=== PATIENT | female | born 1985 | race Caucasian/White ===

== ENCOUNTER 2018-01-19 06:36 | Inpatient (IN) ==
--- OUTSIDE RECORDS SUMMARY | 2018-01-19 06:42 | External Medical Summary | Continuity of Care Document ---
:1985 Author Organization [facility] Address [address] [place], [place] [id number] Phone Care Team Providers Name Role Phone Princess Monk DO Unavailable Unavailable Allergies, Adverse Reactions, Alerts Substance Reaction Severity Status Substance Type Unknown WARNIN allergy(ies) could not be collected because the type is not supported. Please contact [facility] for further details. Medications Medication Instructions Dosage Effective Dates Status Comments (start - stop) Fioricet 50 mg-300 take 1 - 2 capsule Not Available - Active mg-40 mg capsule by oral route every 6 hours as needed not to exceed 6 capsules per 24hrs Vitamin take 1 tablet by Not Available - Active tablet oral route every day Problems Condition Effective Dates (start - stop) Clinical Status Follow-Up, Routine - Follow-Up, Routine - Previous Low Transverse - Low Lying Placenta Nos Or W/out - Hemorrhage, Third Trimester 32 weeks gestation of - Supervision of other high risk - pregnancies, first trimester Previous Low Transverse - Encntr screen for infections w sexl - mode of transmiss Encounter for screening for oth - infec/parastc diseases Encounter for suprvsn of normal - , first trimester Encounter For Other Specified - Screening 8 weeks gestation of - Supervision of other high risk - pregnancies, second trimester Previous Low Transverse - 26 weeks gestation of - Supervision of other high risk - pregnancies, second trimester Previous Low Transverse - 18 weeks gestation of - Supervision of other high risk - pregnancies, third trimester Previous Low Transverse - 32 weeks gestation of - Supervision of other high risk - pregnancies, third trimester Previous Low Transverse - Low Lying Placenta Nos Or W/out - Hemorrhage, Third Trimester 28 weeks gestation of - Previous Low Transverse - Encounter for suprvsn of normal - , second trimester 14 weeks gestation of - Previous Low Transverse - Encounter for suprvsn of normal - , third trimester 30 weeks gestation of - Previous Low Transverse - Low Lying Placenta Nos Or W/out - Hemorrhage, Second Trimester Encounter for suprvsn of normal - , second trimester 18 weeks gestation of - Previous Low Transverse - Encounter for suprvsn of normal - , second trimester 22 weeks gestation of - Previous Low Transverse - Encounter for suprvsn of normal - , third trimester 34 weeks gestation of - Amenorrhea, Secondary - Active Active Procedures Procedure Date Ultrasnd preg uterus, flwup/repeat Results Test Name Date and Time Measure Units Reference Range Abnormal Flag Comments Unknown Advance Directives Directive Yes / No Effective Date File Name Unknown Encounters Encounter Practice Location Reason(s) Diagnoses Date Provider Care Team Description For Visit Members [facility] [place] Previous Low Latrice Referring In Womens Transverse 5-201 Valentine. Provider: Counts include 234 beds at the [facility], C-SectionEncounte 8 700 Valentine PO Box r for suprvsn of Medical Latrice L, 1522, normal , Center [address] [place], third [id number] Andrew Serrano, weeks gestation 120, Center [id number], of [place], [facility] 120, [place] Jae STEARNS, tel:[phone] [place], , [place]. [id number]. tel: tel:[phone] Sandra [place] Supervision of Nov-1 Latrice Referring In Womens other high risk 1-201 Valentine. Provider: Health PA, pregnancies, 8 700 Valentine PO Box third Medical Latrice L, 1522, trimesterPrevious Center [address] [place] [address], Low Transverse , Andrew STEARNS, C-[id number] weeks 120, Center , gestation of [place], [facility] 120, [place] Jae STEARNS, tel:[phone] [place], , [place]. [id number]. tel: tel:[phone] Sandra [place] Previous Low Nov-1 Latrice Referring In Womens Ultrasound Transverse 1-201 Valentine. Provider: Health PA, C-SectionLow 8 700 Valentine PO Box Lying Placenta Medical Latrice L, 1522, Nos Or W/out Center [address] [place] [address], Hemorrhage, Third Andrew Serrano, [id number] weeks 120, Center [id number], gestation of [place], [facility] 120, [place] DARYNJae, tel:[phone] [place], , [place]. [id number]. tel: tel:[phone] Sandra [place] Previous Low Hiram-2 Latrice Referring In Womens Transverse 7-201 Valentine. Provider: Health TONY, C-SectionEncounte 8 700 Valentine PO Box r for suprvsn of Medical Latrice L, 1522, normal , Center [address] [place] [address], third [id number] Andrew Serrano, weeks gestation 120, Center [id number], of [place], Andrew 120, [place] Jae STEARNS, tel:[phone] [place], , [place]. [id number]. tel: tel:[phone] Sandra [place] Supervision of Hiram-1 Latrice Referring In Womens other high risk 3-201 Valentine. Provider: Health PA, pregnancies, 8 700 Valentine PO Box third Medical Latrice L, 1522, trimesterPrevious Center [address] [place], [place] [address], Low Transverse Andrew Serrano, C-SectionLow 120, Center [id number], Lying Placenta [place], [facility] 120, [place] Nos Or W/out Jae STEARNS, tel:+ Hemorrhage, Third [id number] [place], [id number] weeks , [place]. [id number]. gestation of tel: tel: [phone] Sandra [place] Supervision of September-2 Latrice Referring In Womens other high risk 9-201 Valentine. Provider: Health PA, pregnancies, 8 700 Valentine PO Box second Medical Latrice L, 1522, trimesterPrevious Center [address] [place] [address], Low Transverse Andrew Serrano, C-Fefcisd21 weeks 120, Center [id number], gestation of [place], [facility] 120, [place] DARYNJae, tel:[phone] [place], , [place]. [id number]. tel: tel:[phone] Sandra [place] Previous Low May-0 Latrice Referring In Womens Transverse 7-201 Valentine. Provider: Brent JIMENEZ, C-SectionEncounte 8 700 Valentine PO Box r for suprvsn of Medical Latrice L, 152, normal , Center [facility] [place], Andrew orr Dr, [id number] weeks 120, Center [id number], gestation of [facility] 120, [place] DARYNJae, tel:[phone] [place], , [place]. [id number]. tel: tel:[phone] Sandra [place] Previous Low Apr-0 Latrice Referring In Womens Transverse 9-201 Valentine. Provider: Brent JIMENEZ, C-SectionLow 8 700 Valentine PO Box Lying Placenta Medical Latrice L, 1522, Nos Or W/out Center [address] [place], Hemorrhage, Andrew Serrano, Second 120, Center [id number], TrimesterEncounte [place], [facility] 120, [place] r for suprvsn of Jae STEARNS, tel:[phone] normal , [phone] [place], second , [place]. [id number]. weeks tel: tel: gestation of [phone] [facility] Supervision of Apr-0 Latrice Referring In Womens Ultrasound other high risk 9-201 Valentine. Provider: Health PA, pregnancies, 8 700 Valentine PO Box second Medical Latrice L, 1522, trimesterPrevious Center [facility] [place], Low Transverse Dr [facility] Irvin STEARNS, C-[id number] weeks 120, Center , gestation of [place], [facility] 120, [place] DARYN Jae, tel:+ [phone] [place], , [place]. [id number]. tel: tel: [phone] [facility] Mar-0 Latrice In Womens 9-201 Valentine. Health PA, 8 700 PO Box Medical 1522, Center [place], Dr [facility], 120, [id number], [place], tel:[phone] , [place]. tel: [phone] [facility] Previous Low Mar-0 Latrice Referring In Womens Transverse 8-201 Valentine. Provider: Health TONY, C-SectionEncounte 8 700 Valentine PO Box r for suprvsn of Medical Latrice L, 1522, normal , Center [facility] [place], Andrew orr Dr, [id number] weeks 120, [place] [id number], gestation of [facility] 120, [place] DARYN Jae, tel:[phone] [place], , [place]. [id number]. tel: tel:[phone] [facility] Supervision of Nigel-2 Latrice Referring In Womens other high risk 4-201 Valentine. Provider: Health PA, pregnancies, 8 700 Valentine PO Box first Medical Latrice L, 1522, trimesterPrevious Center [facility] [place], Low Transverse , [facility] Irvin STEARNS, C-SectionEncntr 120, [place] [id number], screen for [place], [facility] 120, [place] infections w sexl Jae STEARNS, tel:+ mode of [phone] [place], transmissEncounte , [place]. [id number]. r for screening tel: tel: for oth [phone] infec/parastc diseasesEncounter for suprvsn of normal , first trimesterEncounte r For Other Specified Screening8 weeks gestation of [facility] May- Latrice Referring In Womens Follow-Up, 7-201 Valentine. Provider: Health TONY, Routine 6 700 Valentine PO Box Medical [facility] L, 1522, Center [address], [facility], 120, [place] [id number], [facility], Jae STEARNS, tel:[phone] [facility] , [place]. [id number]. tel: tel: [phone] Sandra [place] Apr- Latrice Referring In Womens Follow-Up, 0-201 Valentine. Provider: Health TONY, Routine 5 700 Valentine PO Box Medical [facility] L, 1522, Center [address], [facility], 120, [place] [id number], [facility] 120, Jae STEARNS, tel: [phone] [place], , [place]. [id number]. tel: tel: [phone] Sandra [place] September- Latrice Referring In Womens 1-201 Valentine. Provider: Health TONY, 5 700 Valentine PO Box Medical [facility] L, 1522, Center [address], [facility], 120, [place] [id number], [facility] 120, Jae STEARNS, tel: [phone] [place], , [place]. [id number]. tel: tel: [phone] Sandra [place] Nov-0 Foster In Womens 3-200 Sonya. Health PA, 9 700 PO Box Medical 1522, Center Dr Kenneth, [facility] [place], 120, [id number] Fernandez, [place], tel: [phone] , [place]. tel: [phone] Family History Family Member Diagnosis Age At Onset Mother Cardiovascular Disease Maternal Aunt Cancer, breast No family history of Ovarian Cancer Maternal Grandmother Cancer, breast Father Cardiovascular Disease Paternal Grandmother Cancer, breast No family history of Colon Cancer Immunizations Vaccine Date Status Comments Unknown Payers Payer name Insurance type Covered republican ID Authorization(s) Donnie HANSEN [id number] Social History Type Description Quantity Date Captured Unknown Vital Signs Date / Height Weight BMI Pulse Blood Temperature Respiratory Body Head BMI Time: Rate Pressure Rate Surface Circumference percentile Area Unknown Chief Complaint And Reason For Visit Unknown Chief Complaint And Reason For Visit Reason For Referral Reason For Referral Unknown Plan Of Care Date Type Action Status Appointment Yessica Sharp BOOKED Appointment Yessica [facility] - [facility] - [facility]S BOOKED Future Order: Radiology Order Ultrasound OB Follow-up ([id number]) Ordered Future Order: Radiology Order Complete OB Ultrasound > 14 Weeks Ordered ([id number]) Date Type Problem Goal Intervention Status Start Date Unknown. History Of Present Illness Encounter Date Complaint History Of Present Illness This patient has no known history of present illness Functional Status Encounter Date Functional Assessment Cognitive Assessment Unknown Medications Administered Medication Instructions Dosage Effective Dates (start - stop) Status Comments Drug Treatment Unknown Instructions Date Instruction Additional Information influenza vaccine environmental / work hazards travel tobacco (ask, advise, assess, assist and arrange) alcohol illicit / recreational drugs use of any medications (including supplements, vitamins, herbs, OTC drugs) smoking counseling domestic violence seat belt use childbirth classes / hospital facilities hospital registration genetic testing Zika virus assessment & precautions sexual activity exercise indications for ultrasound HIV and other routine tests risk factors identified by history anticipated course of care nutrition and weight gain counseling, special diet toxoplasmosis precautions (cats / raw meat) Giving encouragement to exercise Related to Body mass index 26.0 - 26.9
--- OUTSIDE RECORDS SUMMARY | 2018-01-19 06:42 | External Medical Summary | Continuity of Care Document ---
:1985 Author Organization [facility] Address [address] [place], [place] [address] Phone Care Team Providers Name Role Phone Princess Monk DO Unavailable Unavailable Allergies, Adverse Reactions, Alerts Substance Reaction Severity Status Substance Type Unknown WARNIN allergy(ies) could not be collected because the type is not supported. Please contact [facility] for further details. Medications Medication Instructions Dosage [...] Follow-Up, Routine - Previous Low Transverse - Encounter for suprvsn of normal - , third trimester 34 weeks gestation of - Supervision of other [...] Third Trimester 32 weeks gestation of - Previous Low Transverse - Encounter for suprvsn of normal - , third trimester Encounter For Screening For - Streptococcus B 36 weeks gestation of - Amenorrhea, Secondary - Active Active Procedures Procedure Date OB Visit No Charge Results Test Name Date and Time Measure Units Reference Range Abnormal Flag Comments Unknown Advance Directives Directive Yes / No Effective Date File Name Unknown Encounters Encounter Practice Location Reason(s) Diagnoses Date Provider Care Team Description For Visit Members Sandra [place] Previous Low Latrice Referring In Womens Transverse 8-201 Valentine. Provider: Health TONY, C-SectionEncounte 8 700 Valentine PO Box r for suprvsn of Medical Latrice L, 1522, normal , Center [facility] Kenneth, third Andrew Serrano, trimesterEncounte 120, Center , r For [place], [facility] 120, [place] Screening For DARYNJae, tel: Streptococcus [phone] [place], [address] weeks gestation , [place]. [id number]. of tel: tel:[phone] [facility] Previous Low Nov-2 Latrice Referring In Womens Transverse 5-201 Valentine. Provider: Brent JIMENEZ, C-SectionEncounte 8 700 Valentine PO Box r for suprvsn of Medical Latrice L, 1522, normal , Center [facility] Kenneth, third [id number] Andrew Serrano, weeks gestation 120, Bynum [id number], of [facility] 120, [place] Jae STEARNS, tel: [phone] [place], , [place]. [id number]. tel: tel:[phone] [facility] Supervision of Nov-1 Latrice Referring In Womens other high risk 1-201 Valentine. Provider: Brent JIMENEZ, pregnancies, 8 700 Valentine PO Box third Medical Latrice L, 1522, trimesterPrevious Center [address] [place] [address], Low Transverse Andrew Serrano, C-Usqumpf02 weeks 120, Bynum [id number], gestation of [facility] 120, [place] DARYN [place], tel: [phone] [place], , [place]. [id number]. tel: tel:[phone] [facility] Previous Low Nov-1 Latrice Referring In Womens Ultrasound Transverse 1-201 Valentine. Provider: Health TONY, C-SectionLow 8 700 Valentine PO Box Lying Placenta Medical Latrice L, 1522, Nos Or W/out Center [address] [place] [address], Hemorrhage, Third Andrew Serrano, [id number] weeks 120, Bynum [id number], gestation of [facility] 120, [place] Jae STEARNS, tel: [phone] [place], , [place]. [id number]. tel: tel: [phone] [facility] Previous Low Hiram-2 Latrice Referring In Womens Transverse 7-201 Valentine. Provider: Brent JIMENEZ, C-SectionEncounte 8 700 Valentine PO Box r for suprvsn of Medical Latrice L, 1522, normal , Center [address] [place] [address], third [id number] Dr [facility] Irvin STEARNS, weeks gestation 120, Center [id number], of [place], Andrew 120, [place] Jae STEARNS, tel: [phone] [place], , [place]. [id number]. tel: tel:[phone] [facility] Supervision of Hiram-1 Latrice Referring In Womens other high risk 3-201 Valentine. Provider: Brent JIMENEZ, pregnancies, 8 700 Valentine PO Box third Medical Latrice L, 1522, trimesterPrevious Center [address] [place] [address], Low Transverse Dr [facility] Irvin STEARNS, C-SectionLow 120, Bynum [id number], Lying Placenta [place], [facility] 120, [place] Nos Or W/out Jae STEARNS, tel: Hemorrhage, Third [id number] [place], [id number] weeks , [place]. [id number]. gestation of tel: tel: [phone] [facility] Supervision of September-2 Latrice Referring In Womens other high risk 9-201 Valentine. Provider: Brent JIMENEZ, pregnancies, 8 700 Valentine PO Box second Medical Latrice L, 1522, trimesterPrevious Center [address] [place] [address], Low Transverse Dr [facility] Irvin STEARNS, C-Raciuvd76 weeks 120, Bynum [id number], gestation of [place], [facility] 120, [place] DARYNJae, tel:[phone] [place], , [place]. [id number]. tel: tel:[phone] [facility] Previous Low May-0 Latrice Referring In Womens Transverse 7-201 Valentine. Provider: Brent JIMENEZ, C-SectionEncounte 8 700 Valentine PO Box r for suprvsn of Medical Latrice L, 1522, normal , Center [address] [place] [address], second , [facility] DARYN, weeks 120, Center , gestation of [facility] 120, [place] Jae STEARNS, tel:[phone] [place], , [place]. [id number]. tel: tel:[phone] [facility] Previous Low Apr-0 Latrice Referring In Womens Transverse 9-201 Valentine. Provider: Health TONY, C-SectionLow 8 700 Valentine PO Box Lying Placenta Medical Latrice L, 1522, Nos Or W/out Center [address] [place] [address], Hemorrhage, Dr, [facility] DARYN, Second 120, Bynum , TrimesterEncounte [facility] 120, [place] r for suprvsn of ALJae, tel:+ normal , [phone] [place], second , [place]. [id number]. [id number] weeks tel: tel: gestation of [phone] [facility] Supervision of Apr-0 Latrice Referring In Womens Ultrasound other high risk 9-201 Valentine. Provider: Health TONY, pregnancies, 8 700 Valentine PO Box second Medical Latrice L, 1522, trimesterPrevious Center [address] [place] [address], Low Transverse , [facility], C-Idhrvak70 weeks 120, Bynum [id number], gestation of [facility] 120, [place] Jae STEARNS, tel:+ [phone] [place], , [place]. [id number]. tel: tel:[phone] Sandra [place] Mar-0 Latrice In Womens 9-201 Valentine. Health PA, 8 700 PO Box Medical 1522, Center [place], , [facility], 120, [id number], [place], tel: [phone] , [place]. tel: [phone] Sandra [place] Previous Low Mar-0 Latrice Referring In Womens Transverse 8-201 Valentine. Provider: Health TONY, C-SectionEncounte 8 700 Valentine PO Box r for suprvsn of Medical Latrice L, 1522, normal , Center [address], [facility] Irvin STEARNS, weeks 120, Center [id number], gestation of [place], [facility] 120, [place] DARYNJae, tel:+ [phone] [place], , [place]. [id number]. tel: tel:[phone] [facility] Supervision of May- Latrice Referring In Womens other high risk 4-201 Valentine. Provider: Health TONY, pregnancies, 8 700 Valentine PO Box first Medical Latrice L, 1522, trimesterPrevious Center [facility] Kenneth, Low Transverse , [facility] DARYN, C-SectionEncntr 120, Center [id number], screen for [place], [facility] 120, [place] infections w sexl Jae STEARNS, tel:+2 mode of [phone] [place], transmissEncounte , [place]. [id number]. r for screening tel: tel: for oth [phone] infec/parastc diseasesEncounter for suprvsn of normal , first trimesterEncounte r For Other Specified Screening8 weeks gestation of [facility] May- Latrice Referring In Womens Follow-Up, 7-201 Valentine. Provider: Brent JIMENEZ, Routine 6 700 Valentine PO Box Medical Latrice L, 1522, Center [address], [facility], 120, Center [id number], [facility], [place] Jae STEARNS, tel:+ [phone] DARYN, , [place]. [id number]. tel: tel:[phone] Sandra [place] Dec-3 Latrice Referring In Womens Follow-Up, 0-201 Valentine. Provider: Brent JIMENEZ, Routine 5 700 Valentine PO Box Medical Latrice L, 1522, Center [address], [facility], 120, Center [id number], [facility] 120, [place] Jae STEARNS, tel:[phone] [place], , [place]. [id number]. tel: tel:[phone] Sandra [place] Latrice Referring In Womens 1-201 Valentine. Provider: Health TONY, 5 700 Valentine [facility] Medical [facility] L, 1522, Center [address] Dr Kenneth, [facility], 120, Bynum [id number], [facility] 120, [place], Jae, tel: [phone] [place], , [place]. [id number]. tel: tel: [phone] [facility] Nov-0 Foster In Womens 3-200 Sonya. Health TONY, 9 700 [facility] 1522, Bynum Dr Kenneth, [facility], 120, [id number], [place], [place], tel: [phone] , [place]. tel: [phone] Family History Family Member Diagnosis Age At Onset Mother Cardiovascular Disease Maternal Aunt Cancer, breast No family history of Ovarian Cancer Maternal Grandmother Cancer, breast Father Cardiovascular Disease Paternal Grandmother Cancer, breast No family history of Colon Cancer Immunizations Vaccine Date Status Comments Unknown Payers Payer name Insurance type Covered republican ID Authorization(s) [facility] [id number] Social History Type Description Quantity Date Captured Alcohol Use Details No Caffeine Use Details Unknown Tobacco Use Status Smoking Status Never smoker Vital Signs Date / Height Weight BMI Pulse Blood Temperature Respiratory Body Head BMI Time: Rate Pressure Rate Surface Circumference percentile Area Unknown Chief Complaint And Reason For Visit Unknown Chief Complaint And Reason For Visit Reason For Referral Reason For Referral Unknown Plan Of Care Date Type Action Status Appointment Yessica Sharp BOOKED Appointment Yessica Sharp BOOKED Appointment Yessica Sharp BOOKED Appointment Y[facility]ica [facility] - [facility] - [facility]S BOOKED Future Order: Radiology Order Complete OB Ultrasound > 14 Weeks Ordered ([id number]) Future Order: Radiology Order Ultrasound OB Follow-up ([id number]) Ordered Date Type Problem Goal Intervention Status Start [...]
--- OUTSIDE RECORDS SUMMARY | 2018-01-19 06:42 | External Medical Summary | Continuity of Care Document ---
:1985 Author Organization [facility] Address [address] [place], [place] [id number] Phone Care Team Providers Name Role Phone Princess Monk DO Unavailable Unavailable Allergies, Adverse Reactions, Alerts Substance Reaction Severity Status Substance Type Unknown WARNIN allergy(ies) could not be collected because the type is not supported. Please contact [facility] for further details. Medications Medication Instructions [...] Status Follow-Up, Routine - Follow-Up, Routine - Supervision of other high risk - [...] Secondary - Active Active Procedures Procedure Date Unknown Results Test Name Date and Time Measure Units Reference Range Abnormal Flag Comments Unknown Advance Directives Directive Yes / No Effective Date File Name Unknown Encounters Encounter Practice Location Reason(s) Diagnoses Date Provider Care Team Description For Visit Members Sandra [place] Previous Low Latrice Referring In Womens Transverse 5-201 Valentine. Provider: Health TONY, C-SectionEncounte 8 700 Valentine PO Box r for suprvsn of Irvin Pollard L, 1522, normal , Center [address] [place], third [id number], [facility], weeks gestation 120, Center Dr [id number], of [place], Andrew 120, [place] DARYNJae, tel:[phone] [place], , [place]. [id number]. tel: tel: [phone] Associates Jae Darrick-1 Latrice In Womens 3-201 Valentine. Health PA, 8 700 PO Box Medical 1522, Center [place], Dr [facility] [place], 120, [id number], [place], [place], tel:[phone] , [place]. tel: [phone] Sandra [place] Supervision of Darrick-1 Latrice Referring In Womens other high risk 1-201 Valentine. Provider: Health TONY, pregnancies, 8 700 Valentine PO Box third Medical Latrice L, 1522, trimesterPrevious Center [address] [place] [address], Low Transverse , Andrew STEARNS, C-[id number] weeks 120, Center [id number], gestation of Jae [facility] 120, [place] Jae STEARNS, tel:[phone] [place], , [place]. [id number]. tel: tel: [phone] Associates Jae Previous Low Darrick-1 Latirce Referring In Womens Ultrasound Transverse 1-201 Valentine. Provider: Health TONY, C-SectionLow 8 700 Valentine PO Box Lying Placenta Medical Latrice L, 1522, Nos Or W/out Center [address] [place] [address], Hemorrhage, Third Andrew Serrano, [id number] weeks 120, Raymond , gestation of [place], Andrew 120, [place] DARYNJae, tel:[phone] [place], , [place]. [id number]. tel: tel: [phone] Associates Jae Previous Low Hiram-2 Latrice Referring In Womens Transverse 7-201 Valentine. Provider: Health TONY, C-SectionEncounte 8 700 Valentine PO Box r for suprvsn of Medical Latrice L, 1522, normal , Center [address] [place] [address], third [id number] Andrew Serrano, weeks gestation 120, Center , of [place], Andrew 120, [place] Jae STEARNS, tel: [phone] [place], , [place]. [id number]. tel: tel: [phone] Associates Jae Supervision of Oct- Latrice Referring In Womens other high risk 3-201 Valentine. Provider: Brent JIMENEZ, pregnancies, 8 700 Valentine PO Box third Medical Latrice L, 1522, trimesterPrevious Center [address] [place], [place] [address], Low Transverse Andrew Serrano, C-SectionLow 120, Center [id number], Lying Placenta [place], [facility] 120, [place] Nos Or W/out Jae STEARNS, tel:+ Hemorrhage, Third [phone] [place], [id number] weeks , [place]. [id number]. gestation of tel: tel: [phone] Sandra [place] Supervision of September-2 Latrice Referring In Womens other high risk 9-201 Valentine. Provider: Brent JIMENEZ, pregnancies, 8 700 Valentine PO Box second Medical Latrice L, 1522, trimesterPrevious Center [address] [place] [address], Low Transverse Andrew Serrano, C-[id number] weeks 120, Raymond [id number], gestation of [facility] 120, [place] DARYN Jae, tel:[phone] [place], , [place]. [id number]. tel: tel: [phone] Sandra [place] Previous Low May-0 Latrice Referring In Womens Transverse 7-201 Valentine. Provider: Brent JIMENEZ, C-SectionEncounte 8 700 Valentine PO Box r for suprvsn of Medical Latrice L, 1522, normal , Center [address] [place], [place] [address], Ste Medical [place], weeks 120, Raymond [id number], gestation of [place], [facility] 120, [place] DARYN Jae, tel:[phone] [place], , [place]. [id number]. tel: tel:[phone] Sandra [place] Previous Low Apr-0 Latrice Referring In Womens Transverse 9-201 Valentine. Provider: Brent JIMENEZ, C-SectionLow 8 700 Valentine PO Box Lying Placenta Medical Latrice L, 1522, Nos Or W/out Center [facility] [place], Hemorrhage, , [facility] Irvin STEARNS, Second 120, Center [id number], TrimesterEncounte [place], [facility] 120, [place] r for suprvsn of Jae STEARNS, tel:[phone] normal , [phone] [place], second , [place]. [id number]. [id number] weeks tel: tel:316 gestation of [phone] Associates Jae Supervision of Apr-0 Latrice Referring In Womens Ultrasound other high risk 9-201 Valentine. Provider: Health PA, pregnancies, 8 700 Valentine PO Box second Medical Latrice L, 1522, [facility]Previous [facility], Low Transverse , [facility] Irvin STEARNS, C-Mqtyjak84 weeks 120, Raymond , gestation of [facility] 120, [place] DARYN [place], tel:[phone] [place], , [place]. [id number]. tel: tel:[phone] Associates Jae Mar-0 Latrice In Womens 9-201 Valentine. Health PA, 8 700 PO Box Medical 1522, [place], , [facility], 120, [id number], [place], [place], tel: [phone] , [place]. tel: [phone] Associates Jae Previous Low Mar-0 Latrice Referring In Womens Transverse 8-201 Valentine. Provider: Health PA, C-SectionEncounte 8 700 Valentine PO Box r for suprvsn of Medical Latrice L, 1522, normal , Center [address] [place] [address], second Andrew Serrano, [id number] weeks 120, Raymond [id number], gestation of [facility] 120, [place] DARYN Jae, tel:[phone] [place], , [place]. [id number]. tel: tel:[phone] Associates Jae Supervision of Nigel-2 Latrice Referring In Womens other high risk 4-201 Valentine. Provider: Health PA, pregnancies, 8 700 Valentine PO Box first Medical Latrice L, 1522, trimesterPrevious Center 700 [place], Low Transverse Dr [facility] DARYN, C-SectionEncntr 120, Center [id number], screen for [place], [facility] 120, [place] infections w sexl Jae STEARNS, tel:[phone] mode of [phone] [place], transmissEncounte , [place]. [id number]. r for screening tel: tel:+[phone] for oth [phone] infec/parastc diseasesEncounter for suprvsn of normal , first trimesterEncounte r For Other Specified Screening8 weeks gestation of Sandra [place] May- Latrice Referring In Womens Follow-Up, 7-201 Valentine. Provider: Health PA, Routine 6 700 Valentine PO [facility] Wesley L, 1522, Center [address], [facility], 120, Raymond [id number], [facility], [place] Jae STEARNS, tel:[phone] [place], , [place]. [id number]. tel: tel:[phone] Sandra [place] Latrice Referring In Womens Follow-Up, 0-201 Valentine. Provider: Health PA, Routine 5 700 Valentine PO Box Medical Latrice L, 1522, Center [address], [facility], 120, Raymond [id number], [facility], [place] Jae STEARNS, tel:[phone] [place], , [place]. [id number]. tel: tel:[phone] Sandra [place] September- Latrice Referring In Womens 1-201 Valentine. Provider: Health PA, 5 700 Valentine PO Box Medical Latrice L, 1522, Center [address], [facility], 120, Raymond [id number], [facility] 120, [place] Jae STEARNS, tel:[phone] [place], , [place]. [id number]. tel: tel:[phone] Sandra [place] Nov-0 Foster In Womens 3-200 Sonya. Health PA, 9 700 PO [place] [id number] Dr Kenneth, [facility], 120, [id number], [facility] [place], tel:[phone] , [place]. tel: [phone] Family History Family Member Diagnosis Age At Onset Mother Cardiovascular Disease Maternal Aunt Cancer, breast No family history of Ovarian Cancer Maternal Grandmother Cancer, breast Father Cardiovascular Disease Paternal Grandmother Cancer, breast No family history of Colon Cancer Immunizations Vaccine Date Status Comments Unknown Payers Payer name Insurance type Covered constitution party ID Authorization(s) Donnie [id number] Social History Type Description Quantity Date Captured [...] Yessica Sharp BOOKED Appointment Yessica Sharp [place] [facility] [place] Future Order: Radiology Order Complete OB Ultrasound > 14 Weeks Ordered ([id number]) Future Order: Radiology Order Ultrasound OB Follow-up ([id number]) Ordered Date Type Problem Goal Intervention Status [...]
--- OUTSIDE RECORDS SUMMARY | 2018-01-19 06:42 | External Medical Summary | Continuity of Care Document ---
:1985 Author Organization [facility] Address [address] [place], [place] [id number] Phone Care Team Providers Name Role Phone Princess Monk DO Unavailable Unavailable Allergies, Adverse Reactions, Alerts Substance Reaction Severity Status Substance Type Unknown WARNIN allergy(ies) could not be collected because the type is not supported. Please contact [facility] for further details. Medications Medication Instructions Dosage Effective Dates Status Comments (start - stop) Fioricet 50 mg-300 take 1 - 2 capsule Not Available - Active mg-40 mg capsule by oral route every 6 hours as needed not to exceed 6 capsules per 24hrs Unisom Sleepgels take 1 capsule by 50 MG - Active 50 mg capsule oral route every day at bedtime as needed Vitamin take 1 tablet by Not Available - Active tablet oral route every day Problems Condition Effective Dates (start - stop) Clinical Status Follow-Up, Routine - Follow-Up, Routine - Previous Low Transverse - Encounter for suprvsn of normal - , second trimester 14 weeks gestation of - Supervision of other high risk - pregnancies, first trimester Previous Low Transverse - Encntr screen for infections w sexl - mode of transmiss Encounter for screening for oth - infec/parastc diseases Encounter for suprvsn of normal - , first trimester Encounter For Other Specified - Screening 8 weeks gestation of - Amenorrhea, Secondary - Active Active Procedures Procedure Date OB Visit No Charge Results Test Name Date and Time Measure Units Reference Range Abnormal Flag Comments Unknown Advance Directives Directive Yes / No Effective Date File Name Unknown Encounters Encounter Practice Location Reason(s) Diagnoses Date Provider Care Team Description For Visit Members Sandra [place] Mar-0 Latrice In Womens 9-201 Valentine. Health TONY, 8 700 PO Box Medical 1522, Center Kenneth, , [facility], 120, [id number], [place], [place], tel: [phone] , [place]. tel: [phone] Associates Jae Previous Low Mar-0 Latrice Referring In Womens Transverse 8-201 Valentine. Provider: Brent JIMENEZ, C-SectionEncounter 8 700 Valentine PO Box for suprvsn of Medical Latrice L, 1522, normal , Center [facility] Kenneth, second [id number] , [facility], weeks gestation of 120, [place] , Jae, [facility] 120, [place] Jae STEARNS, tel: [phone] [place], , [place]. [id number]. tel: tel: [phone] Associates Jae Supervision of Latrice Referring In Womens other high risk 4-201 Valentine. Provider: Brent JIMENEZ, pregnancies, first 8 700 Valentine PO Box trimesterPrevious Medical Latrice L, 1522, Low Transverse Center [address] [place] [address], C-SectionEncntr , [facility], screen for 120, [place] [id number], infections w sexl Jae, [facility] 120, [place] mode of Jae STEARNS, tel: transmissEncounter [phone] [place], for screening for , [place]. [id number]. oth infec/parastc tel: tel: diseasesEncounter [phone] for suprvsn of normal , first trimesterEncounter For Other Specified Screening8 weeks gestation of Associates Jae Latrice Referring In Womens Follow-Up, Routine 7-201 Valentine. Provider: Brent JIMENEZ, 6 700 Valentine PO Box Medical Latrice L, 1522, Center [address] Dr Kenneth, [facility] Medical [place], 120, Center [id number], Jae, [facility] 120, Jae STEARNS, tel:+ [phone] DARYN, , . [id number]. tel: tel:[phone] Sandra [place] Dec-3 Latrice Referring In Womens Follow-Up, Routine 0-201 Valentine. Provider: Health TONY, 5 700 Valentine PO Box Medical Latrice L, 1522, Center [address] Dr Kenneth, [facility] [place], 120, Center [id number], Jae, [facility] 120, Jae STEARNS, tel:+ [phone] [place], , . [id number]. tel: tel: [phone] Sandra [place] May-1 Latrice Referring In Womens 1-201 Valentine. Provider: Brent JIMENEZ, 5 700 Valentine PO Box Medical Latrice L, 1522, Center [address], [facility] [place], 120, Center [id number], Jae, [facility] 120, Jae STEARNS, tel:[phone] DARYN, , . [id number]. tel: tel:[phone] Sandra [place] Nov-0 Foster In Womens 3-200 Sonya. Health PA, 9 700 PO Box Medical 1522, [place] Dr Kenneth, [facility] [place], 120, [id number], Jae, DARYN, tel:[phone] , . tel: [phone] Family History Family Member Diagnosis Age At Onset Mother Cardiovascular Disease Maternal Aunt Cancer, breast No family history of Ovarian Cancer Maternal Grandmother Cancer, breast Father Cardiovascular Disease Paternal Grandmother Cancer, breast No family history of Colon Cancer Immunizations Vaccine Date Status Comments Unknown Payers Payer name Insurance type Covered libertarian ID Authorization(s) IZABELLA SHIPLEY [id number] Social History Type Description Quantity Date Captured Alcohol Use Details No Caffeine Use Details Unknown Tobacco Use Status Smoking Status Never smoker Vital Signs Date / Height Weight BMI Pulse Blood Temperature Respiratory Body Head BMI Time: Rate Pressure Rate Surface Circumference percentile Area 156.80 28.6 /2018 lbs 8 mm[Hg] 1:31 kg/m PM eter (2) Chief Complaint And Reason For Visit Unknown Chief Complaint And Reason For Visit Reason For Referral Reason For Referral Unknown Plan Of Care Date Type Action Status Appointment Yessica Sharp BOOKED Appointment Yessica Sharp BOOKED Date Type Problem Goal Intervention Status Start [...]
--- OUTSIDE RECORDS SUMMARY | 2018-01-19 06:42 | External Medical Summary | Continuity of Care Document ---
:1984 Author Organization [facility] Address [address] [place], [place] [id number] Phone Care Team Providers Name Role Phone Princess Monk DO Unavailable Unavailable Allergies, Adverse Reactions, Alerts Substance Reaction Severity Status Substance Type Unknown WARNIN allergy(ies) could not be collected because the type is not supported. Please contact [facility] for further details. Medications Medication Instructions Dosage [...] third trimester 30 weeks gestation of - Supervision of other [...] Third Trimester 32 weeks gestation of - Amenorrhea, Secondary - Active Active Procedures Procedure Date OB Visit No Charge Results Test Name Date and Time Measure Units Reference Range Abnormal Flag Comments Unknown Advance Directives Directive Yes / No Effective Date File Name Unknown Encounters Encounter Practice Location Reason(s) Diagnoses Date Provider Care Team Description For Visit Members Sandra [place] Supervision of Latrice Referring In Womens other high risk 1-201 Valentine. Provider: Health PA, pregnancies, 8 700 Valentine PO Box kodi Pollard L, 1522, trimesterPrevious Center 700 [place], Low Transverse Andrew Serrano, C-Eznbkqv82 weeks 120, [place] [id number], gestation of Jae [facility] 120, [place] Jae STEARNS, tel:[phone] [place], , [place]. [id number]. tel: tel:[phone] Sandra [place] Previous Low Nov- Latrice Referring In Womens Ultrasound Transverse 1-201 Valentine. Provider: Health TONY, C-SectionLow 8 700 Valentine PO Box Lying Placenta Medical Latrice L, 1522, Nos Or W/out Center 700 [place], Hemorrhage, Third Andrew Serrano, [id number] weeks 120, Center [id number], gestation of [place], [facility] 120, [place] DARYN Jae, tel:+ [phone] [place], , [place]. [id number]. tel: tel:[phone] Sandra [place] Previous Low Oct- Latrice Referring In Womens Transverse 7-201 Valentine. Provider: Brent JIMENEZ, C-SectionEncounte 8 700 Valentine PO Box r for suprvsn of Medical Latrice L, 1522, normal , Center [address] [place] [address], third [id number] Andrew Serrano, weeks gestation 120, [place] , of [place], Andrew 120, [place] Jae STEARNS, tel:+ [phone] [place], , [place]. [id number]. tel: tel:[phone] Sandra [place] Supervision of Oct- Latrice Referring In Womens other high risk 3-201 Valentine. Provider: Brent JIMENEZ, pregnancies, 8 700 Valentine PO Box third Medical Latrice L, 1522, trimesterPrevious Center [facility] e[facility]nneth Low Transverse Andrew Serrano, C-SectionLow 120, [place] [id number], Lying Placenta [place], [facility] 120, [place] Nos Or W/out DARYN [place], tel:+ Hemorrhage, Third [phone] [place], [id number] weeks , [place]. [id number]. gestation of tel: tel:[phone] Sandra [place] Supervision of September- Latrice Referring In Womens other high risk 9-201 Valentine. Provider: Brent JIMENEZ, pregnancies, 8 700 Valentine PO Box second Medical Latrice L, 1522, trimesterPrevious Center 700 [place], Low Transverse Andrew Serrano, C-[id number] weeks 120, Center [id number], gestation of [place], [facility] 120, [place] Jae STEARNS, tel:+ [phone] [place], , [place]. [id number]. tel: tel:[phone] Associates Jae Previous Low May-0 Latrice Referring In Womens Transverse 7-201 Valentine. Provider: Health PA, C-SectionEncounte 8 700 Valentine PO Box r for suprvsn of Medical Latrice L, 1522, normal , Center [address] [place] [address], second , Andrew STEARNS, [id number] weeks 120, Center [id number], gestation of [facility] 120, [place] Jae STEARNS, tel:+ [phone] [place], , [place]. [id number]. tel: tel:[phone] Associates Jae Previous Low Apr-0 Latrice Referring In Womens Transverse 9-201 Valentine. Provider: Health TONY, C-SectionLow 8 700 Valentine PO Box Lying Placenta Medical Latrice L, 1522, Nos Or W/out Center [address] [place] [address], Hemorrhage, , Andrew STEARNS, Second 120, Center [id number], TrimesterEncounte [facility] 120, [place] r for suprvsn of Jae STEARNS, tel:[phone] normal , [phone] [place], second , [place]. [id number]. [id number] weeks tel: tel:+316 gestation of [phone] Associates Jae Supervision of Apr-0 Latrice Referring In Womens Ultrasound other high risk 9-201 Valentine. Provider: Health TONY, pregnancies, 8 700 Valentine PO Box second Medical Latrice L, 1522, trimesterPrevious Center [facility] [place], Low Transverse Andrew Serrano, C-Hfbanzt81 weeks 120, Center [id number], gestation of [place], [facility] 120, [place] Jea STEARNS, tel:[phone] [place], , [place]. [id number]. tel: tel:+[phone] Sandra [place] Mar-0 Latrice In Womens 9-201 Valentine. Health PA, 8 700 PO Box Medical 1522, Center Dr Kenneth, [facility] [place], 120, [id number], [place], [place], tel: [phone] , [place]. tel: [phone] Associates Jae Previous Low Mar-0 Latrice Referring In Womens Transverse 8-201 Valentine. Provider: Health TONY, C-SectionEncounte 8 700 Valentine PO Box r for suprvsn of Medical Latrice L, 1522, normal , Center [address] [place], [place] [address], second , [facility], [id number] weeks 120, Center [id number], gestation of [place], [facility] 120, [place] Jae STEARNS, tel: [phone] [place], , [place]. [id number]. tel: tel: [phone] Sandra [place] Supervision of May- Latrice Referring In Womens other high risk 4-201 Valentine. Provider: Health TONY, pregnancies, 8 700 Valentine PO Box first Medical Latrice L, 1522, trimesterPrevious Center [facility], Low Transverse , [facility], C-SectionEncntr 120, Center [id number], screen for [place], [facility] 120, [place] infections w sexl Jae STEARNS, tel: mode of [phone] [place], transmissEncounte , [place]. [id number]. r for screening tel: tel: for oth [phone] infec/parastc diseasesEncounter for suprvsn of normal , first trimesterEncounte r For Other Specified Screening8 weeks gestation of Associates Jae May-2 Latrice Referring In Womens Follow-Up, 7-201 Valentine. Provider: Brent JIMENEZ, Routine 6 700 Valentine PO Box Medical Latrice L, 1522, Center [address], [facility], 120, Center [id number], [place], [facility] 120, [place] Jae STEARNS, tel:+ [phone] [place], , [place]. [id number]. tel: tel:+ [phone] Sandra [place] Dec- Latrice Referring In Womens Follow-Up, 0-201 Valentine. Provider: Health TONY, Routine 5 700 Valentine PO Box Medical Latrice L, 1522, Center [address] Dr Kenneth, [facility] [place], 120, [place] [id number], Jae, [facility] 120, DARYN, Jae, tel:[phone] [place], , [place]. [id number]. tel: tel: [phone] Sandra [place] September- Latrice Referring In Womens 1-201 Valentine. Provider: Brent JIMENEZ, 5 700 Valentine PO Box Medical Latrice L, 1522, Center [address] Dr Kenneth, [facility], 120, [place] [id number], [facility], Jae STEARNS, tel:[phone] [place], , [place]. [id number]. tel: tel: [phone] Sandra [place] Nov-0 Foster In Womens 3-200 Sonya. Health TONY, 9 700 PO Box Medical 1522, [place] Dr Kenneth, [facility] [place], 120, [id number], [place], [facility], tel: [phone] , [place]. tel: [phone] Family History Family Member Diagnosis Age At Onset Mother Cardiovascular Disease Maternal Aunt Cancer, breast No family history of Ovarian Cancer Maternal Grandmother Cancer, breast Father Cardiovascular Disease Paternal Grandmother Cancer, breast No family history of Colon Cancer Immunizations Vaccine Date Status Comments Unknown Payers Payer name Insurance type Covered constitution party ID Authorization(s) [facility] [id number] Social History Type Description Quantity Date Captured [...] Yessica Sharp BOOKED Appointment Yessica Sharp - [facility] [place]/S BOOKED Future Order: Radiology Order Complete OB Ultrasound > 14 Weeks Ordered ([id number]) Future Order: Radiology Order Ultrasound OB Follow-up ([id number]) Ordered Date Type Problem Goal Intervention Status [...]
--- OUTSIDE RECORDS SUMMARY | 2018-01-19 06:42 | External Medical Summary | Continuity of Care Document ---
:1985 Author Organization [facility] Address [address] [place], [place] [id number] Phone Care Team Providers Name Role Phone Princess Monk DO Unavailable Unavailable Allergies, Adverse Reactions, Alerts Substance Reaction Severity Status Substance Type Unknown WARNIN allergy(ies) could not be collected because the type is not supported. Please contact [facility] for further details. Medications Medication Instructions [...] Third Trimester 28 weeks gestation of - Supervision of other [...] Transverse - 18 weeks gestation of - Previous Low [...] second trimester 22 weeks gestation of - Amenorrhea, Secondary - Active Active Procedures Procedure Date OB Visit No Charge - LAST DIPPER Results Test Name Date and Time Measure Units Reference Range Abnormal Flag Comments Unknown Advance Directives Directive Yes / No Effective Date File Name Unknown Encounters Encounter Practice Location Reason(s) Diagnoses Date Provider Care Team Description For Visit Members [facility] Previous Low Latrice Referring In Womens Transverse 7-201 Valentine. Provider: Brent JIMENEZ, C-SectionEncounte 8 700 Valentine PO Box r for suprvsn of Medical Latrice L, 152, normal , Center [address] [place], third [id number] Andrew Serrano, weeks gestation 120, Center [id number], of Jae, [facility] 120, [place] Jae STEARNS, tel: [phone] DARYN, [id number] , [place]. [id number]. tel: tel: [phone] Associates [facility] Supervision of Latrice Referring In Womens other high risk 3-201 Valentine. Provider: Brent JIMENEZ, pregnancies, 8 700 Valentine PO Box third Medical Latrice L, 1522, trimesterPrevious Center [address] [place], [place] [address]e Low Transverse Andrew Serrano, C-SectionLow 120, Center [id number], Lying Placenta [facility] 120, [place] Nos Or W/out Jae STEARNS, tel:+ Hemorrhage, Third [id number] [place], [id number] weeks , [place]. [id number]. gestation of tel: tel: [phone] Sandra [place] Supervision of September-2 Latrice Referring In Womens other high risk 9-201 Valentine. Provider: Health PA, pregnancies, 8 700 Valentine PO Box second Medical Latrice L, 1522, trimesterPrevious Center [facility] Kenneth Low Transverse Andrew Serrano, C-[id number] weeks 120, Center [id number], gestation of [facility] 120, [place] Jae STEARNS, tel:+ [phone] [place], , [place]. [id number]. tel: tel: [phone] Sandra [place] Previous Low May-0 Latrice Referring In Womens Transverse 7-201 Valentine. Provider: Health TONY, C-SectionEncounte 8 700 Valentine PO Box r for suprvsn of Medical Latrice L, 1522, normal , Center [facility] Kenneth, Andrew orr Dr, [id number] weeks 120, [place] [id number], gestation of [facility] 120, [place] Jae STEARNS, tel:+ [phone] [place], , [place]. [id number]. tel: tel: [phone] Sandra [place]e Previous Low Apr-0 Latriec Referring In Womens Transverse 9-201 Valentine. Provider: Health TONY, C-SectionLow 8 700 Valentine PO Box Lying Placenta Medical Latrice L, 1522, Nos Or W/out Center [facility] Kenneth, Hemorrhage, , Andrew STEARNS, Second 120, Center [id number], TrimesterEncounte [facility] 120, [place] r for suprvsn of Jae STEARNS, tel:+[phone] normal , [id number] [place], second , [place]. [id number]. [id number] weeks tel: tel:+1-316 gestation of [phone] Associates [facility] Supervision of Apr-0 Latrice Referring In Womens Ultrasound other high risk 9-201 Valentine. Provider: Health PA, pregnancies, 8 700 Valentine PO Box second Medical Latrice L, 1522, trimesterPrevious Center [address] [place], Low Transverse Andrew Serrano, C-[id number] weeks 120, Center [id number], gestation of [place], [facility] 120, [place] Jae STEARNS, tel: [phone] [place], , [place]. [id number]. tel: tel: [phone] Associates [facility] Mar-0 Latrice In Womens 9-201 Valentine. Health PA, 8 700 PO Box Medical 1522, Center Kenneth, Dr [facility], 120, [id number], [place], [place], tel:[phone] , [place]. tel: [phone] Sandra [place] Previous Low Mar-0 Latrice Referring In Womens Transverse 8-201 Valentine. Provider: Health TONY, C-SectionEncounte 8 700 Valentine PO Box r for suprvsn of Medical Latrice L, 1522, normal , Center [facility] [place], Andrew orr Dr, [id number] weeks 120, [place] [id number], gestation of [place], Andrew 120, [place] Jae STEARNS, tel: [phone] [place], , [place]. [id number]. tel: tel: [phone] Sandra [place] Supervision of May-2 Latrice Referring In Womens other high risk 4-201 Valentine. Provider: Health PA, pregnancies, 8 700 Valentine PO Box first Medical Latrice L, 1522, trimesterPrevious Center [facility] Kenneth, Low Transverse Andrew Serrano, C-SectionEncntr 120, [place] [id number], screen for [place], Andrew 120, [place] infections w sexl Jae STEARNS, tel:[phone], transmissEncounte , [place]. [id number]. r for screening tel: tel: for oth [phone] infec/parastc diseasesEncounter for suprvsn of normal , first trimesterEncounte r For Other Specified Screening8 weeks gestation of Associates Jae Nigel- Latrice Referring In Womens Follow-Up, 7-201 Valentine. Provider: Brent JIMENEZ, Routine 6 700 Valentine PO Box Medical Latrice L, 1522, Center [address] Dr Kenneth, [facility] [place], 120, Center [id number], [facility] 120, Jae STEARNS, tel: [phone] [place], , [place]. [id number]. tel: tel: [phone] Sandra [place] Apr-3 Latrice Referring In Womens Follow-Up, 0-201 Valentine. Provider: Brent JIMENEZ, Routine 5 700 Valentine PO Box Medical [facility] L, 1522, Center [facility] Dr Kenneth, [facility], 120, [place] , [facility] 120, Jae STEARNS, tel: [phone] [place], , [place]. [id number]. tel: tel: [phone] Sandra [place]e September- Latrice Referring In Womens 1-201 Valentine. Provider: Brent JIMENEZ, 5 700 Valentine PO Box Medical [facility] L, 1522, Center [address] Dr Kenneth, [facility] [place], 120, [place] [id number], [facility] 120, Jae STEARNS, tel:[phone] [facility] , . [id number]. tel: tel: [phone] Sandra [place] Nov-0 Foster In Womens 3-200 Sonya. Health TONY, 9 700 [facility] Medical 1522, [place] Dr Kenneth, [facility] [place], 120, [id number], Jae, DARYN, tel: [phone] , [place]. tel: [phone] Family History Family Member Diagnosis Age At Onset Mother Cardiovascular Disease Maternal Aunt Cancer, breast No family history of Ovarian Cancer Maternal Grandmother Cancer, breast Father Cardiovascular Disease Paternal Grandmother Cancer, breast No family history of Colon Cancer Immunizations Vaccine Date Status Comments Unknown Payers Payer name Insurance type Covered alliance party ID Authorization(s) Donnie HANSEN [id number] Social History Type Description Quantity Date Captured Alcohol Use Details No Caffeine Use Details Unknown Tobacco Use Status Smoking Status Never smoker Vital Signs Date / Height Weight BMI Pulse Blood Temperature Respiratory Body Head BMI Time: Rate Pressure Rate Surface Circumference percentile Area 155.70 28.4 112/70 2018 lbs 8 mm[Hg] 8:40 kg/m AM eter (2) Chief Complaint And Reason For Visit Unknown Chief Complaint And Reason For Visit Reason For Referral Reason For Referral Unknown Plan Of Care Date Type Action Status Appointment Yessica Sharp BOOKED Appointment Yessica Sharp BOOKED Future Order: Radiology Order Complete OB Ultrasound > 14 Weeks Ordered ([id number]) Date Type Problem Goal Intervention Status Start [...]
--- OUTSIDE RECORDS SUMMARY | 2018-01-19 06:42 | External Medical Summary | Continuity of Care Document ---
:1985 Author Organization [facility] Address [address] [place], [place] [address] Phone Care Team Providers Name Role Phone Princess Monk DO Unavailable Unavailable Allergies, Adverse Reactions, Alerts Substance Reaction Severity Status Substance Type Unknown WARNIN allergy(ies) could not be collected because the type is not supported. Please contact [facility] for further details. Medications Medication Instructions Dosage [...] In Womens Transverse 5-201 Valentine. Provider: Health PA, C-SectionEncounte 8 700 Valentine PO Box r for suprvsn of Irvin Pollard L, 1522, normal , Center [address] [place], third [id number] Dr, [facility] Medical [place], weeks gestation 120, Center [id number], of [place], Andrew 120, [place] Jae STEARNS, tel:[phone] [place], , [place]. [id number]. tel: tel:[phone] Sandra [place] Supervision of Nov-1 Latrice Referring In Womens other high risk 1-201 Valentine. Provider: Brent JIMENZE, pregnancies, 8 700 Valentine PO Box third Medical Latrice L, 1522, trimesterPrevious Center [address] [place] [address], Low Transverse Andrew Serrano, C-[id number] weeks 120, Center [id number], gestation of [place], Andrew 120, [place] DARYNJae, tel:[phone] [place], , [place]. [id number]. tel: tel:[phone] Sandra [place] Previous Low Nov-1 Latrice Referring In Womens Ultrasound Transverse 1-201 Valentine. Provider: Brent JIMENEZ, C-SectionLow 8 700 Valentine PO Box Lying Placenta Medical Latrice L, 1522, Nos Or W/out Center [address] [place] [address], Hemorrhage, Third Andrew Serrano, [id number] weeks 120, Center [id number], gestation of [place], [facility] 120, [place] DARYN Jae, tel:[phone] [place], , [place]. [id number]. tel: tel:[phone] Sandra [place]e Previous Low Hiram-2 Latrice Referring In Womens Transverse 7-201 Valentine. Provider: Brent JIMENEZ, C-SectionEncounte 8 700 Valentine PO Box r for suprvsn of Medical Latrice L, 1522, normal , Center [address] [place] [address], third [id number] Andrew Serrano, weeks gestation 120, Center [id number], of [place], Andrew 120, [place] Jae STEARNS, tel:[phone] DARYN, , [place]. [id number]. tel: tel:[phone] Sandra [place] Supervision of Hiram- Latrice Referring In Womens other high risk 3-201 Valentine. Provider: Health PA, pregnancies, 8 700 Valentine PO Box third Medical Latrice L, 1522, trimesterPrevious Center [facility] [place], Low Transverse Andrew Serrano, C-SectionLow 120, Center [id number], Lying Placenta [facility] 120, [place] Nos Or W/out DARYN Jae, tel:+ Hemorrhage, Third [id number] [place], [id number] weeks , [place]. [id number]. gestation of tel: tel:+ [phone] Associates [facility]ae Supervision of September-2 Latrice Referring In Womens other high risk 9-201 Valentine. Provider: Health PA, pregnancies, 8 700 Valentine PO Box second Medical Latrice L, 1522, trimesterPrevious Center [address] [place], [place] [address]ta, Low Transverse , Andrew STEARNS, C-Bqkmsny98 weeks 120, Center [id number], gestation of [facility] 120, [place], tel:[phone] [place], , [place]. [id number]. tel: tel: [phone] Associates Jae Previous Low May-0 Latrice Referring In Womens Transverse 7-201 Valentine. Provider: Brent JIMENEZ, C-SectionEncounte 8 700 Valentine PO Box r for suprvsn of Medical Latrice L, 1522, normal , Center [address] [place], [place] [address]ta, banner Andrew Serrano, [id number] weeks 120, Center [id number], gestation of [facility] 120, [place] DARYNJae, tel:[phone] [place], , [place]. [id number]. tel: tel: [phone] Associates [facility] Previous Low Apr-0 Latrice Referring In Womens Transverse 9-201 Valentine. Provider: Brent JIMENEZ, C-SectionLow 8 700 Valentine PO Box Lying Placenta Medical Latrice L, 1522, Nos Or W/out Center [facility] [place], Hemorrhage, Andrew Serrano, Second 120, Center [id number], TrimesterEncounte [facility] 120, [place] r for suprvsn of Jae STEARNS, tel:+ normal , [phone] [place], second , [place]. [id number]. [id number] weeks tel: tel:316 gestation of [phone] Associates Jae Supervision of Apr-0 Latrice Referring In Womens Ultrasound other high risk 9-201 Valentine. Provider: Health PA, pregnancies, 8 700 Valentine PO Box second Medical Latrice L, 1522, trimesterPrevious Center 700 [place], Low Transverse , [facility] DARYN, C-Txlrrmi59 weeks 120, Center , gestation of [place], [facility] 120, [place] Jae STEARNS, tel:+ [phone] [place], , [place]. [id number]. tel: tel: [phone] Associates [facility]ae Mar-0 Latrice In Womens 9-201 Valentine. Health PA, 8 700 PO Box Medical 1522, Center [place], Dr [facility], 120, [id number], [place], [place], tel:[phone] , [place]. tel: [phone] Associates Jae Previous Low Mar-0 Latrice Referring In Womens Transverse 8-201 Valentine. Provider: Health TONY, C-SectionEncounte 8 700 Valentine PO Box r for suprvsn of Medical Latrice L, 1522, normal , Center [facility] [place], Andrew orr Dr, [id number] weeks 120, [place] [id number], gestation of [place], [facility] 120, [place] Jae STEARNS, tel:[phone] [place], , [place]. [id number]. tel: tel:[phone] Associates [facility]ae Supervision of Nigel-2 Latrice Referring In Womens other high risk 4-201 Valentine. Provider: Health PA, pregnancies, 8 700 Valentine PO Box first Medical Latrice L, 1522, trimesterPrevious Center [facility] [place], Low Transverse , [facility], C-SectionEncntr 120, [place] [id number], screen for [place], [facility] 120, [place] infections w sexl Jae STEARNS, tel: mode of [phone] [place], transmissEncounte , [place]. [id number]. r for screening tel: tel: for oth [phone] infec/parastc diseasesEncounter for suprvsn of normal , first trimesterEncounte r For Other Specified Screening8 weeks gestation of Sandra [place] May- Latrice Referring In Womens Follow-Up, 7-201 Valentine. Provider: Health TONY, Routine 6 700 Valentine PO Box Medical Latrice L, 1522, Center [address], [facility], 120, [place] [id number], [facility] 120, Jae STEARNS, tel: [phone] [facility] , [place]. [id number]. tel: tel: [phone] Sandra [place] Apr- Latrice Referring In Womens Follow-Up, 0-201 Valentine. Provider: Health TONY, Routine 5 700 Valentine PO Box Medical [facility] L, 1522, Center [address], [facility], 120, [place] [id number], [facility] 120, Jae STEARNS, tel:+ [phone] [place], , [place]. [id number]. tel: tel: [phone] Sandra [place] September- Latrice Referring In Womens 1-201 Valentine. Provider: Health TONY, 5 700 Valentine PO Box Medical [facility] L, 1522, Center [address], [facility], 120, [place] [id number], [facility] 120, Jae STEARNS, tel: [phone] [place], , [place]. [id number]. tel: tel:[phone] Sandra [place]e Nov-0 Foster In Womens 3-200 Sonya. Health PA, 9 700 PO Box Medical 1522, [place] Dr Kenneth, [facility] [place], 120, [id number] Fernandez, DARYN, tel:[phone] , [place]. tel: [phone] Family History Family Member Diagnosis Age At Onset Mother Cardiovascular Disease Maternal Aunt Cancer, breast No family history of Ovarian Cancer Maternal Grandmother Cancer, breast Father Cardiovascular Disease Paternal Grandmother Cancer, breast No family history of Colon Cancer Immunizations Vaccine Date Status Comments Unknown Payers Payer name Insurance type Covered libertarian ID Authorization(s) Donnie HANSEN [id number] Social History Type Description Quantity Date Captured Alcohol Use Details No Caffeine Use Details Unknown Tobacco Use Status Smoking Status Never smoker Vital Signs Date / Height Weight BMI Pulse Blood Temperature Respiratory Body Head BMI Time: Rate Pressure Rate Surface Circumference percentile Area 157.00 28.7 119/73 2018 lbs 1 mm[Hg] 8:42 kg/m AM eter (2) Chief Complaint And Reason For Visit Unknown Chief Complaint And Reason For Visit Reason For Referral Reason For Referral Unknown Plan Of Care Date Type Action Status Appointment Yessica Sharp BOOKED Appointment Yessica Sharp - IAC - RC/S BOOKED Future Order: Radiology Order Complete OB Ultrasound > 14 Weeks Ordered ([id number]) Future Order: Radiology Order Ultrasound OB Follow-up ([id number]) Ordered Date Type Problem Goal Intervention Status [...]
--- OUTSIDE RECORDS SUMMARY | 2018-01-19 06:43 | External Medical Summary | Continuity of Care Document ---
:1985 Author Organization [facility] Address [address] [place], [place] [id number] Phone Care Team Providers Name Role Phone Princess Monk DO Unavailable Unavailable Allergies, Adverse Reactions, Alerts Substance Reaction Severity Status Substance Type Unknown WARNIN allergy(ies) could not be collected because the type is not supported. Please contact [facility] for further details. Medications Medication Instructions [...] - Screening 8 weeks gestation of - Previous Low Transverse - Encounter for suprvsn of normal - , second trimester 14 weeks gestation of - Previous Low Transverse - Low Lying Placenta Nos Or W/out - Hemorrhage, Second Trimester Encounter for suprvsn of normal - , second trimester 18 weeks gestation of - Amenorrhea, Secondary - Active Active Procedures Procedure Date Ultrasound exam of preg uterus, complete Results Test Name Date and Time Measure Units Reference Range Abnormal Flag Comments Unknown Advance Directives Directive Yes / No Effective Date File Name Unknown Encounters Encounter Practice Location Reason(s) Diagnoses Date Provider Care Team Description For Visit Members [facility] Previous Low Apr-0 Latrice Referring In Womens Transverse - Valentine. Provider: Brent JIMENEZ, C-SectionLow 8 700 Valentine PO Box Lying Placenta Medical Latrice L, 1522, Nos Or W/out Center [facility] Kenneth, Hemorrhage, , [facility] Irvin STEARNS, Second 120, [place] [id number], TrimesterEncounte [facility] 120, [place] r for suprvsn of Jae STEARNS, tel:+ normal , [phone] [place], second , [place]. [id number]. [email or web address] weeks tel: tel: gestation of [phone] Associates Jae Supervision of Aug-0 Latrice Referring In Womens Ultrasound other high risk - Valentine. Provider: Brent JIMENEZ, pregnancies, 8 700 Valentine PO Box second Medical Latrice L, 1522, trimesterPrevious Center [facility] Kenneth, Low Transverse Dr [facility] DARYN, C-Xtcikyj45 weeks 120, [place] [id number], [facility] 120, [place] Jae STEARNS, tel: [phone] DARYN, , [place]. [id number]. tel: tel: [phone] Sandra [place] Jul-0 Latrice In Womens 9-201 Valentine. Health PA, 8 700 PO Box Medical 1522, [address] [place], 120, [id number], [place], [place], tel:[phone] , [place]. tel: [phone] Sandra [place] Previous Low Mar-0 Latrice Referring In Womens Transverse 8-201 Valentine. Provider: Brent JIMENEZ, C-SectionEncounte 8 700 Valentine PO Box r for suprvsn of Medical Latrice L, 1522, normal , Center [address] [place] [address], second , [facility], [id number] weeks 120, Center [id number], gestation of [place], [facility] 120, [place] Jae STEARNS, tel:+ [phone] [place], , [place]. [id number]. tel: tel:+[phone] Sandra [place] Supervision of May- Latrice Referring In Womens other high risk 4-201 Valentine. Provider: Brent JIMENEZ, pregnancies, 8 700 Valentine PO Box first Medical Latrice L, 1522, trimesterPrevious Center [facility] Kenneth, Low Transverse , [facility] DARYN, C-SectionEncntr 120, [place] [id number], screen for [place], [facility] 120, [place] infections w sexl Jae STEARNS, tel: mode of [phone] [place], transmissEncounte , [place]. [id number]. r for screening tel: tel: for oth [phone] infec/parastc diseasesEncounter for suprvsn of normal , first trimesterEncounte r For Other Specified Screening8 weeks gestation of Associates Jae May-2 Latrice Referring In Womens Follow-Up, 7-201 Valentine. Provider: Brent JIMENEZ, Routine 6 700 Valentine PO Box Medical Latrice L, 1522, Center [address], [facility], 120, [place] [id number], [facility] 120, [place] Jae STEARNS, tel: [phone] [place], , [place]. [id number]. tel: tel:[phone] Sandra [place] Dec-3 Latrice Referring In Womens Follow-Up, 0-201 Valentine. Provider: Brent JIMENEZ, Routine 5 700 Valentine PO Box Medical Latrice Mejía, 1522, Center [address], [facility], 120, [place] [id number], [place], [facility] 120, Jae STEARNS, tel: [phone] [place], , [place]. [id number]. tel: tel: [phone] Sandra [place] Latrice Referring In Womens 1-201 Valentine. Provider: Health TONY, 5 700 Valentine PO Box Medical [facility], 1522, [place] [address] Dr Kenneth, [facility], 120, [place] [id number], [facility] 120, DARYN, Jae, tel: [phone] [place], , [place]. [id number]. tel: tel: [phone] Sandra [place]e Mar- Foster In Womens 3-200 Sonya. Health PA, 9 700 PO Box Medical 1522, [place] Dr Kenneth, [facility] [place], 120, [id number], Jae, DARYN, tel: [phone] , [place]. tel: [phone] Family History Family Member Diagnosis Age At Onset Mother Cardiovascular Disease Maternal Aunt Cancer, breast No family history of Ovarian Cancer Maternal Grandmother Cancer, breast Father Cardiovascular Disease Paternal Grandmother Cancer, breast No family history of Colon Cancer Immunizations Vaccine Date Status Comments Unknown Payers Payer name Insurance type Covered libertarian ID Authorization(s) Unknown Social History Type Description Quantity Date Captured Unknown Vital Signs Date / Height Weight BMI Pulse Blood Temperature Respiratory Body Head BMI Time: Rate Pressure Rate Surface Circumference percentile Area Unknown Chief Complaint And Reason For Visit Unknown Chief Complaint And Reason For Visit Reason For Referral Reason For Referral Unknown Plan Of Care Date Type Action Status Appointment Yessica Sharp BOOKED Future Order: Radiology Order Complete OB Ultrasound > 14 Weeks Ordered ([id number]) Date Type Problem Goal Intervention Status Start [...]
--- OUTSIDE RECORDS SUMMARY | 2018-01-19 06:43 | External Medical Summary | Continuity of Care Document ---
:1985 Author Organization [facility] Address [address] [place], [place] [id number] Phone Care Team Providers Name Role Phone Princess Monk DO Unavailable Unavailable Allergies, Adverse Reactions, Alerts Substance Reaction Severity Status Substance Type Unknown WARNIN allergy(ies) could not be collected because the type is not supported. [facility] contact [facility] for further details. Medications Medication Instructions Dosage [...] second trimester 18 weeks gestation of - Supervision of [...] second trimester 14 weeks gestation of - Amenorrhea, Secondary - [...] L, 1522, Nos Or W/out Center [facility] Kenneth Hemorrhage, , [facility], Second 120, [place] , TrimesterEncounte [facility] 120, [place] r for suprvsn of Jae STEARNS, tel:+2 normal , [phone] [place], second , [place]. [id number]. [email or web address] weeks tel: tel: gestation of [phone] Associates Jae Supervision of Aug-0 Latrice Referring In Womens Ultrasound other high risk -201 Valentine. Provider: Brent JIMENEZ, pregnancies, 8 700 Valentine PO [address] second Medical Latrice L, 1522, trimesterPrevious Center [facility] Kenneth Low Transverse , [facility], [id number] weeks 120, [place] [id number], gestation of [facility] 120, [place] Jae STEARNS, tel: [phone] [place], , [place]. [id number]. tel: tel: [phone] Sandra [place] Mar-0 Latrice In Womens 9-201 Valentine. Brent [place], 8 700 PO [address] Medical [address], Center [address] Kenneth, [facility] [place], 120, [id number], [place], tel:[phone] , [place]. tel: [phone] Sandra [place] Previous Low Mar-0 Latrice Referring In Womens Transverse 8-201 Valentine. Provider: Brent JIMENEZ, C-SectionEncounte 8 700 Valentine PO Box r for suprvsn of Medical Latrice L, 1522, normal , Center [address] [place] [address], second , [facility], [email or web address] weeks 120, Center [id number], gestation of [place], [facility] 120, [place] Jae STEARNS, tel:+ [phone] [place], , [place]. [id number]. tel: tel:[phone] Sandra [place] Supervision of May- Latrice Referring In Womens other high risk 4-201 Valentine. Provider: Brent JIMENEZ, pregnancies, 8 700 Valentine PO Box first Medical Latrice L, 1522, trimesterPrevious Center [address] [place] [id number], Low Transverse , [facility], C-SectionEncntr 120, Center [id number], screen for [place], [facility] 120, [place] infections w sexl Jae STEARNS, tel:+ mode of [phone] [place], transmissEncounte , [place]. [id number]. r for screening tel: tel:+ for oth [phone] infec/parastc diseasesEncounter for suprvsn of normal , first trimesterEncounte r For Other Specified Screening8 weeks gestation of Associates Jae May-2 Latrice Referring In Womens Follow-Up, 7-201 Valentine. Provider: Brent JIMENEZ, Routine 6 700 Valentine PO Box Medical Latrice L, 1522, Center [address], [facility] [place], 120, [place] [id number], Jae, [facility] 120, [place] Jae STEARNS, tel:+ [phone] [place], , [place]. [id number]. tel: tel:[phone] Sandra [place] Dec-3 Latrice Referring In Womens Follow-Up, 0-201 Valentine. Provider: Brent JIMENEZ, Routine 5 700 Valentine PO Box Medical Latrice Mejía, 1522, [address], [facility], 120, [place] [id number], Jae, [facility] 120, [place] Jae STEARNS, tel: [phone] [place], , [place]. [id number]. tel: tel: [phone] Sandra [place] Latrice Referring In Womens 1-201 Valentine. Provider: Health TONY, 5 700 Valentine PO Box Medical Latrice L, 1522, Center [address] Kenneth, [facility] [place], 120, [place] [id number], [facility], [place], Jae, tel: [phone] [place], , [place]. [id number]. tel: tel: [phone] Sandra [place] Mar- Foster In Womens 3-200 Sonya. Health TONY, 9 700 PO Box Medical [address], [place] Dr Kenneth, [facility] [place], 120, [id number], [place], tel: [phone] , [place]. tel: [phone] Family History Family Member Diagnosis Age At Onset Mother Cardiovascular Disease Maternal Aunt Cancer, breast No family history of Ovarian Cancer Maternal Grandmother Cancer, breast Father Cardiovascular Disease Paternal Grandmother Cancer, breast No family history of Colon Cancer Immunizations Vaccine Date Status Comments Unknown Payers Payer name Insurance type Covered republican ID Authorization(s) Unknown Social History Type Description [...] Complete OB Ultrasound > 14 Weeks Ordered ([id number]) Date Type Problem Goal Intervention Status Start [...]
--- OUTSIDE RECORDS SUMMARY | 2018-01-19 06:43 | External Medical Summary | Continuity of Care Document ---
:1985 Author Organization [facility] Address [address] [place], [place] [id number] Phone Care Team Providers Name Role Phone Princess Monk DO Unavailable Unavailable Allergies, Adverse Reactions, Alerts Substance Reaction Severity Status Substance Type Unknown WARNIN allergy(ies) could not be collected because the type is not supported. Please contact [facility] for further details. Medications Medication Instructions Dosage Effective Dates Status Comments (start - stop) Unisom Sleepgels take 1 capsule by 50 MG - Active 50 mg capsule oral route every day at bedtime as needed Vitamin take 1 tablet by Not Available - Active tablet oral route every day Diclegis 10 mg-10 take 1 tablet by - No Longer mg tablet,delayed oral route every Active release day in the morning, 1 tablet in the mid-afternoon, and 2 tablets at bedtime Problems Condition Effective Dates (start - stop) [...] Team Description For Visit Members [facility] Supervision of Latrice Referring In Womens other high risk 4-201 Valentine. Provider: Brent JIMENEZ, pregnancies, first 8 700 Valentine PO Box trimesterPrevious Medical Latrice L, 1522, Low Transverse Center [facility] Kenneth, C-SectionEncntr , [facility], screen for 120, [place] , infections w sexl Jae, [facility] 120, [place] mode of Jae STEARNS, tel:+ transmissEncounter [phone] [place], for screening for , [place]. [id number]. ot infec/parastc tel: tel: diseasesEncounter [phone] for suprvsn of normal , first trimesterEncounter For Other Specified Screening8 weeks gestation of Associates [facility] May-0 Latrice In Womens 9-201 Valentine. Brent JIMENEZ, 8 700 PO Box Medical [address], [place] [address] Kenneth, [facility], 120, [id number], [place], tel: [phone] , [place]. tel: [phone] Sandra [place] May-2 Latrice Referring In Womens Follow-Up, Routine 7-201 Valentine. Provider: Brent JIMENEZ, 6 700 Valentine PO Box Medical Latrice L, 1522, Center [facility] Dr Kenneth, [facility] [place], 120, [place] [id number], Jae [facility] 120, [place] Jae STEARNS, tel: [phone] [place], , [place]. [id number]. tel: tel: [phone] Associates [facility] Apr-3 Latrice Referring In Womens Follow-Up, Routine 0-201 Valentine. Provider: Brent JIMENEZ, 5 700 Valentine PO Box Medical Latrice L, 1522, Center [address] Kenneth, [facility] [place], 120, [place] [id number], Jae [facility] 120, [place] Jae STEARNS, tel:[phone] [place], , [place]. [id number]. tel: tel:[phone] Associates [facility] Latrice Referring In Womens 1-201 Valentine. Provider: Health TONY, 5 700 Valentine PO Box Medical Latrice L, 1522, Center [address] Dr Kenneth, [facility] Medical [place], 120, [place] Dr , [facility] , DARYN, Jae, tel: [phone] [facility] , . [id number]. tel: tel: [phone] [facility] Mar- Foster In Womens 3-200 Sonya. Health TONY, 9 700 [facility] Medical 1522, [place] Dr Kenneth, [facility], 120, [id number], [place], DARYN, tel: [phone] , . tel: [phone] Family History Family Member Diagnosis Age At Onset Mother Cardiovascular Disease Maternal Aunt Cancer, breast No family history of Ovarian Cancer Maternal Grandmother Cancer, breast Father Cardiovascular Disease Paternal Grandmother Cancer, breast No family history of Colon Cancer Immunizations Vaccine Date Status Comments Unknown Payers Payer name Insurance type Covered libertarian ID Authorization(s) [facility] [id number] Social History Type Description Quantity Date Captured Unknown Vital Signs Date / Height Weight BMI Pulse Blood Temperature Respiratory Body Head BMI Time: Rate Pressure Rate Surface Circumference percentile Area Unknown Chief Complaint And Reason For Visit Unknown Chief Complaint And Reason For Visit Reason For Referral Reason For Referral Unknown Plan Of Care Date Type Action Status Appointment Yessica Sharp BOOKED Date Type Problem [...]
[2018-01-19] MEDS ORDERED: CEFAZOLIN PREMIX (MC ONLY) 2 GM/50 ML BAG IV ONE (07:28)
[2018-01-19] MEDS ORDERED: CITRIC ACID/SODIUM CITRATE 30ml PO ONE (07:28)
[2018-01-19] MEDS ORDERED: FAMOTIDINE PB 20 MG/50 ML BAG IV ONE (07:28)
[2018-01-19] MEDS ORDERED: NOZIN NASAL SWAB NAS ONE (07:28)
[2018-01-19] MEDS ORDERED: NALBUPHINE 10 MG/ML INJECTION IVP PRN ×2 (07:46→10:09)
[2018-01-19] MEDS: LR 1,000 ML IV SCH ×2 (07:48→10:35)
--- NOTE | 2018-01-19 08:39 | Anesthesia Preoperative Report ---
Anesthesia Preoperative Record - Date and Time Date: 01/19/18 Preoperative Diagnosis: ob triage Proposed Procedure: Repeat NPO Since Date: 01/19/18 NPO Since Time: 00:00 Allergies/Adverse Reactions: Allergies Allergy/AdvReac Type Severity Reaction Status Date / Time diphtheria, pertussis, Allergy Severe SEIZURE Verified 01/11/18 11:13 tetanus vacc - Medications Inpatient Medications: Current Medications Lactated Ringer's (Lactated Ringers) 1,000 mls @ 150 mls/hr IV .[id number] LELE Last Admin: 01/19/18 07:48 Dose: 150 mls/hr Nalbuphine HCl (Nubain) 5 - 10 mg IVP O PRN Last Admin: 01/19/18 07:47 Dose: 5 mg Home Medications: Home Medications Medication Instructions Recorded Confirmed Type Vits W-Ca,Fe,Fa(<1MG) 1 tab PO DAILY #0 10/30/09 01/11/18 History () Docusate Calcium 240 mg PO DAILY #20 cap 05/14/15 Rx Ibuprofen 800 mg PO Q8HMC #40 tab 05/14/15 Rx Oxycodone HCl/Acetaminophen 1 tab PO Q3HR #40 tab 05/14/15 Rx [Oxycodone-Acetaminophen 5-325] Is Patient on Beta Bright?: No - Medical History Respiratory: Reports: Pneumonia (Pt reports she had pneumonia last year. and partially collapsed lung.) Cardiovascular: Reports: High Cholesterol Gastrointestional: Reports: Gastroesophageal Reflux Disease (minor) Neuro/Musculoskeletal: Reports: Headaches, Seizures (as a child. no meds currently. no problems since childhood) Other History: Reports: Now - Surgical History Reproductive Surgery/Treatment: Reports: Section Anesthesia Reactions: None (never had GA) Hx Family Anesthesia Reaction: Yes (mom hard to sleep and slow to wake) History of Motion Sickness: No - Social History Smoking Status: Former smoker (quit 4yrs ago) Packs per day: 1 Pack-years: 10 - Pertinent Findings Laboratory: CBC and BMP 01/19/18 07:38 - Physical Exam Respiratory Exam: Present: lungs clear, bilateral breath sounds equal Cardiovascular Exam: Present: regular rate and rhythm, no murmur - Airway Assessment Mallampati Score: III TMD: 3 Fingerbreadths Neck Extension: good Overall Assessment: may be difficult intubation - ASA ASA Score: 2 - Plan Anesthesia: Neuroaxial Regional/Trunk Block: Spinal - Discussion Discussion: Discussed risks/options/alternatives of anesthesia and questions answered. Patient consents. Nursing pain assessment noted. Present for Discussion: other (none) Attestation Statement: Prior to the delivery of any anesthetic medication, I examined the patient, developed the plan, obtained the patient's consent and discussed the risk and benefits of the procedure with the patient/guardian. - Additional Information Seen by Anesthesia: Yes
[2018-01-19] MEDS ORDERED: MORPHINE SULFATE PF 5mg/10ml INJ (Duramorph) ONE (08:53)
[2018-01-19] MEDS ORDERED: FentaNYL 100 MCG/2 ML INJECTION ONE (08:54)
[2018-01-19] MEDS ORDERED: ONDANSETRON 4 MG/2 ML INJECTION ONE (08:57)
[2018-01-19] MEDS ORDERED: LIDOCAINE 2% (100mg/5mL) 5ml PF SDV ONE (09:01)
[2018-01-19] MEDS ORDERED: BUPIVACAINE 0.75%/DEXTROSE 8.5% SPINAL 2 ML AMPULE IJ ONE (09:01)
[2018-01-19] MEDS ORDERED: KETAMINE 500 MG/10 ML INJECTION ONE (09:16)
[2018-01-19] MEDS ORDERED: EPHEDRINE 50mg/ml INJECTION ONE (09:17)
[2018-01-19] MEDS ORDERED: TRANEXAMIC ACID 1,000 MG in NS 100 ML IV ONE (09:20)
[2018-01-19] MEDS ORDERED: OXYTOCIN BOLUS BAG 30 UNIT/500 ML ML IV SCH (09:22)
[2018-01-19] MEDS: D5LR 1,000 ML IV SCH ×2 (09:40→11:00)
[2018-01-19] MEDS ORDERED: METOCLOPRAMIDE 10mg/2ml INJECTION ONE (09:40)
[2018-01-19] MEDS ORDERED: DEXAMETHASONE 4 MG/ML INJECTION ONE (09:41)
[2018-01-19] MEDS ORDERED: ONDANSETRON 4 MG/2 ML INJECTION IVP PRN (10:09)
[2018-01-19] MEDS ORDERED: NALOXONE 2 MG/2 ML INJECTION PFS IVP PRN (10:09)
[2018-01-19] MEDS ORDERED: METOCLOPRAMIDE 10mg/2ml INJECTION IVP PRN (10:09)
[2018-01-19] MEDS ORDERED: HYDROCORTISONE 2.5% CREAM 30gm RECTALLY PRN (11:57)
[2018-01-19] MEDS ORDERED: HYDROCODONE/APAP 5mg/325mg TABLET PO PRN (11:57)
[2018-01-19] MEDS ORDERED: DiphenhydrAMINE 25 MG CAPSULE PO PRN (11:57)
[2018-01-19] MEDS ORDERED: CALCIUM CARBONATE Chewable 500mg TABLET PO PRN (11:57)
[2018-01-19] MEDS ORDERED: OXYTOCIN DRIP 30 UNIT/500 ML ML IV SCH (11:57)
[2018-01-19] MEDS ORDERED: ACETAMINOPHEN 500 MG TABLET PO PRN (11:57)
[2018-01-19] MEDS ORDERED: SIMETHICONE 80 MG CHEWABLE TABLET PO PRN (11:57)
[2018-01-19] MEDS: Oxycodone/Acetaminophen 5/325 1 TAB PO PRN ×3 (12:24→20:38)
[2018-01-19] MEDS: IBUPROFEN 800 MG TABLET PO SCH ×2 (12:24→19:49)
--- NOTE | 2018-01-19 12:28 | Operative Note ---
DATE OF OPERATION 01/19/2018 Ms. Gardiner presented to [facility] this morning with complaint of contractions. Originally they were about every half an hour. Once here, these began to progress and she changed her cervix from 3 cm to 5 cm. Meanwhile, we had called a section. The patient was scheduled two days from now for repeat and she has had three priors, given her active labor, that moved to today. PREOPERATIVE DIAGNOSIS Term , active labor, previous x3. POSTOPERATIVE DIAGNOSIS Term , active labor, previous x3, delivered. PROCEDURE Repeat low transverse section. SURGEON Valentine Pollard MD COATING AND EMBOSSING UNIT OPERATOR Arslan Rosas, Hemstitcher ANESTHESIA Spinal by Sandro Nieves CRNA EBL 700 mL DESCRIPTION OF PROCEDURE Ms. Sharp was brought to the OR and given regional analgesia to good effect. She was then placed on the OR table in the comfortable supine position with left lateral displacement. A Meier catheter was placed to dependent drain. The abdomen was prepped and draped in usual sterile fashion. A Pfannenstiel skin incision was made with a sharp knife. This was carried down to fascia. Fascia was incised transversely. Fascia was then bluntly and sharply dissected free of rectus muscles. Rectus muscles were quite divided already and the peritoneum and been entered simply dissecting the fascia. This peritoneal incision was then extended vertically. The bladder blade was inserted. The bladder was noted be well below our area of operation. A low transverse uterine incision was made with one cut. The lower uterine segment was quite thin and I believe would have ruptured had she continued to labor. There was copious clear amniotic fluid. Baby was delivered in the vertex OA presentation after reduction of a loose nuchal cord. Baby was bulb suctioned on the abdomen and then again after total delivery. Cord was doubly clamped and cut. Baby was given to Dr. Nunez and his team for care. This is a liveborn female with Apgars of 8/9/9. She weighed 7 pounds, 8.1 ounces. The placenta was then manually removed, intact. It had a normal configuration and a normal-appearing three-vessel cord. The uterus was exteriorized and we began our closure. There were two small arterial bleeds on the right. They were grasped with clamps and secured with 3-0 chromic ties. We then reapproximated the myometrial incision with a running locking 0 Monocryl. The incision had extended toward the cervix on the right approximately 2 cm and this was secured without difficulty. We inspected carefully for hemostasis. This was under good control. Uterus, tubes and ovaries were noted to be grossly normal and returned to the abdominal cavity. We reinspected for hemostasis and again it remained under good control as it did throughout the procedure. Peritoneum was then reapproximated with a running nonlocking 2-0 Vicryl. Fascia was reapproximated with a running nonlocking 0 Vicryl. Skin edges were reapproximated with a subcuticular style 3-0 undyed Vicryl. The wound was dressed with Steri-Strips and sterile dressing. Counts were correct postoperatively x2 and the urine remained clear and free flowing throughout the procedure. At the time of this dictation, Ms. Sharp is being transferred to recovery. She is in stable condition. LAISHA
[2018-01-19] MEDS: SIMETHICONE 80 MG CHEWABLE TABLET PO SCH ×3 (16:17→22:01)
[2018-01-19 20:39] VITALS: BMI 29.7
[2018-01-20] MEDS: Oxycodone/Acetaminophen 5/325 1 TAB PO PRN ×6 (00:37→21:58)
[2018-01-20] MEDS: D5LR 1,000 ML IV SCH (00:39)
[2018-01-20] MEDS: IBUPROFEN 800 MG TABLET PO SCH ×3 (04:06→21:21)
--- NOTE | 2018-01-20 07:50 | Progress Note ---
OB PP Progress Note Free Text - Date Date: 01/20/18 - Progress Note Progress Note: doing ok no c/o vss af q&a-krb
--- NOTE | 2018-01-20 07:59 | Anesthesia Postoperative Note ---
- Date and Time Date: 01/20/18 Time: 07:55 - Status Patient Participated in Evaluation: Patient Participated in Person Vital Signs: Temperature 98.1 F 01/20/18 04:20 Pulse Rate 74 01/20/18 04:20 Respiratory Rate 20 01/20/18 04:20 Blood Pressure 110/65 01/20/18 04:20 Pulse Oximetry 97 01/20/18 04:20 Respiratory Function: Airway Patent, Regular Respirations Cardiovascular Function: Regular Pulse Mental Status: Alert and Oriented Pain Intensity: 3 Hydration: Taking PO Fluids Nausea/Vomiting: None Complications During Recover: None Apparent Post Anesthesia Care Notes: ambulatory without problems - Follow-Up Instructions Instructions: Per Surgeon
[2018-01-20] MEDS: SIMETHICONE 80 MG CHEWABLE TABLET PO SCH ×4 (08:29→21:34)
[2018-01-20] MEDS: DOCUSATE CALCIUM 240 MG CAPSULE PO SCH (08:29)
[2018-01-21] MEDS: Oxycodone/Acetaminophen 5/325 1 TAB PO PRN ×5 (02:41→21:19)
[2018-01-21] MEDS: DOCUSATE CALCIUM 240 MG CAPSULE PO SCH ×2 (06:26→10:59)
[2018-01-21] MEDS: IBUPROFEN 800 MG TABLET PO SCH ×3 (06:27→21:20)
[2018-01-21] MEDS: SIMETHICONE 80 MG CHEWABLE TABLET PO SCH ×5 (06:27→21:20)
--- NOTE | 2018-01-21 08:56 | OB/GYN Progress Note ---
OB-PP Progress Note - General PPD2 POD:: POD2 - Subjective Date: 01/21/18 Lochia: Minimal Pain: controlled Voiding: voiding Nausea or Vomiting Present: No - Objective Vital Signs: Last Vital Signs Temp 96.7 F L 01/21/18 05:45 Pulse 69 01/21/18 05:45 Resp 16 01/21/18 05:45 BP 128/70 01/21/18 05:45 Pulse Ox 100 01/21/18 05:45 Urine Output: good General: alert and oriented Abdomen: fundus firm, non-tender Extremities: non-tender - Assessment Assessment: SP, Repeat C/S - Plan Plan: routine care Consider dismissal this evening or in a.m.
[2018-01-22] MEDS: Oxycodone/Acetaminophen 5/325 1 TAB PO PRN ×3 (03:52→10:11)
[2018-01-22] MEDS: IBUPROFEN 800 MG TABLET PO SCH (03:52)
[2018-01-22 05:51] VITALS: BP 131/81; PULSE 85; RESP 16; TEMP 98.3; O2SAT 97
[2018-01-22] MEDS: DOCUSATE CALCIUM 240 MG CAPSULE PO SCH (10:11)
[2018-01-22] MEDS: SIMETHICONE 80 MG CHEWABLE TABLET PO SCH (10:12)
== END 2018-01-22 12:15 | disposition home or self-care (01) | DRG 766 ==
LOC: OBOBS 06:36 → MC 06:37 → SRG 09:56 → MC 22:10
PROVIDERS: ADMIT Obstetrics & Gynecology; ATTEND Obstetrics & Gynecology